=== PATIENT | male | born 1980 | race Caucasian/White ===

== ENCOUNTER 2021-06-28 16:43 | Emergency (ER) | payer MEDICAID, SELFPAY ==
[2021-06-28 16:45] VITALS: BP 135/94; PULSE 96; RESP 14; TEMP 36.6; O2SAT 98; BMI 27.0
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
[2021-06-28 18:01] VITALS: PULSE 85; RESP 16; O2SAT 99
[2021-06-28 18:37] LABS: Absolute Lymphocyte Count 1.82 X10^3/uL (0.83-4.51); Absolute Neutrophil Count 3.7 X10^3/uL (2.0-7.7); Basophil# 0.05 X10^3/uL; Basophil% 0.8 % (0-1); Eosinophil# 0.33 X10^3/uL; Hematocrit 45.2 % (40-54); Hemoglobin 15.5 g/dL (13.0-16.5); Lymphocyte # 1.82 X10^3/ul (0.83-4.51); Lymphocyte % 27.4 % (19-41); Mean Corp Hgb Conc 34.3 g/dL (32-36); Mean Corpuscular Hgb 32.1 pg (27.0-32.0); Mean Corpuscular Volume 93.6 fL (80-94); Monocyte# 0.71 X10^3/uL; Monocyte% 10.7 % (0-10); NRBC Flagged by Analyzer 0 % (0-5); Neutrophil # 3.72 X10^3/uL (2.7-7.7); Neutrophil % 55.9 % (47-70); Platelet Count 325 K/mm3 (150-450); RBC Distribution Width CV 11.9 % (11.6-14.6); RBC Distribution Width SD 41.2 fl (35.1-43.9); Red Blood Count 4.83 M/mm3 (4.6-6.2); White Blood Count 6.6 K/mm3 (4.4-11.0)
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
[2021-06-28 18:49] LABS: Anion Gap 6 (5-15); BUN 17 mg/dL (7-18); Calcium,Total 9.1 mg/dL (8.5-10.1); Chloride 106 mmol/L (98-107); Creatinine, Serum 0.94 mg/dL (0.70-1.30); EST Glomerular Filtration Rate 94 mL/min (>60); Est Glom Filt Rate - Afr Amer 113 mL/min (>60); Estimated Creatinine Clearance 106.78 ml/min; Glucose 94 mg/dL (74-106); Potassium 3.5 mmol/L (3.5-5.1); Sodium Level 140 mmol/L (136-145)
[2021-06-28 20:42] VITALS: BP 161/105; PULSE 101; RESP 20; O2SAT 98
--- NOTE | 2021-06-28 21:29 | EKG12_ITS ---
Test Reason : Blood Pressure : / mmHG Vent. Rate : 082 BPM Atrial Rate : 082 BPM P-R Int : 134 ms QRS Dur : 084 ms QT Int : 380 ms P-R-T Axes : 050 082 068 degrees QTc Int : 443 ms Normal sinus rhythm Septal infarct , age undetermined Abnormal ECG Confirmed by CR DUFFY, ABEBA ([id number]), art editor SCOOTER CARCAMO ([id number]) on 06/30/2021 12:52:40 PM Referred By: PL Confirmed By:ABEBA HANKINS MD
--- NOTE | 2021-06-28 21:31 | CM.ED ---
SOPHIE went and met with patient. Advised that he was going to be placed in psych facility. Patient was dismissive and terse and stated if that is what you want. SOPHIE met with patient's mother and advised her that patient is being placed for psych treatment. (patient gave this newspaper writer verbal consent to speak to his mother). SOPHIE received phone call from [facility] staff. They need EKG, UA and statement of medical clearance. SOPHIE requested EKG order by the MD. SOPHIE updated RN. SOPHIE called Jayashree at [facility] and advised this newspaper writer had made referral to [facility] Plan: Inpatient psych Melodie LEWIS
[2021-06-28 22:17] LABS: Amphetamine Urine VISTA POSITIVE (<1000 ng/mL); Barbiturate Urine VISTA NEGATIVE (< 200 ng/mL); Benzodiazepine Urine VISTA NEGATIVE (< 200 ng/mL); Cocaine Urine VISTA NEGATIVE (< 300 ng/mL); Ecstacy Urine VISTA POSITIVE (< 500 ng/mL); Methadone Urine VISTA NEGATIVE (< 300 ng/mL); PCP Urine VISTA NEGATIVE (< 25 ng/mL); THC Urine VISTA POSITIVE (< 50 ng/mL); Vista UDS pH Range 6
[2021-06-28 23:05] LABS: CPK Total, Creatine Kinase 51 U/L (39-308)
[2021-06-28 23:22] VITALS: PULSE 80; RESP 16; O2SAT 99
--- NOTE | 2021-06-28 23:34 | CM.ED ---
SOPHIE faxed all requested information including the CK, EKG medical clearance and drug screen to [facility]. Confirmation received. SOPHIE called Lola at [facility] and advised that this typewriter mechanic had faxed the information. Plan: Inpatient psych hospitalization. Melodie LEWIS
--- NOTE | 2021-06-29 00:12 | CM.ED ---
SOPHIE received call from Lola at [facility] Lola advised that MD Guan had accepted patient. Lola reported that accepting MD is Roge. Patient is going to room 113B. RN to RN is [phone]. SOPHIE called patient's mother, Jay and the phone was answered but then the hung up. SOPHIE called patient's mother, jay and left voice mail advising that patient is going to [facility] and provided their phone number. SOPHIE advised this principal technical writer is unaware of time of transport but she can call the ED and provided the main number for [facility]. SOPHIE called [facility] and left message for Karin advising that placement had been secured for patient. Plan: [facility] Melodie LEWIS
[2021-06-29 02:05] VITALS: BP 136/70; BP 154/70; PULSE 85; PULSE 90; RESP 12; RESP 17; O2SAT 99
== END 2021-06-29 04:20 ==
PROVIDERS: Emergency Provider Emergency Medicine; Visit Provider Emergency Medicine
DX: F22 Delusional disorders (principal); F12.90 Cannabis use, unspecified, uncomplicated; F32.A Depression, unspecified; F15.90 Other stimulant use, unspecified, uncomplicated; F16.90 Hallucinogen use, unspecified, uncomplicated; R45.851 Suicidal ideations
CPT/HCPCS: 80048; 80307; 82077; 82550; 85025; 87811; 93005; 99285